=== PATIENT | female | born 1985 ===

== ENCOUNTER 2017-12-27 23:05 | Emergency (ER) | payer MEDICAID ==
[2017-12-27 23:18] VITALS: TEMP 98.3; O2SAT 100
[2017-12-27] MEDS ORDERED: Sodium Chloride 0.9% 1,000 ML IV STA (23:39)
--- NOTE | 2017-12-28 00:10 | ED PDOC ---
HPI: Abdomen Time Seen by Provider: 12/27/17 23:25 Chief Complaint (Nursing): Chest Pain Chief Complaint (Provider): Epigastric abdominal pain History Per: Patient History/Exam Limitations: no limitations Onset/Duration Of Symptoms: Hrs Additional Complaint(s): 32yo female, EGA of 8 weeks, presents to ED with complaints of epigastric abdominal pain for the apst 2 hours. Patient states she has been nauseous as well, which she attributed to her . She states tonight, she ate a coconut milk rice dish and had extreme epigastric pain with associated vomiting (non-bloody, non-bilious). She states the pain is sharp and non-radiating. She denies any fever, diarrhea, vaginal bleeding, or urinary symptoms. She has no other medical complaints. Abnormal Vaginal Bleeding: No : 1 Para: 0 Past Medical History Reviewed: Historical Data, Nursing Documentation, Vital Signs Vital Signs: Last Vital Signs Temp 98.3 F 12/27/17 23:16 Pulse 83 12/28/17 02:47 Resp 18 12/28/17 02:47 BP 115/75 12/28/17 02:47 Pulse Ox 100 12/28/17 02:47 - Medical History PMH: No Chronic Diseases - Surgical History Surgical History: No Surg Hx - Family History Family History: States: No Known Family Hx - Social History Current smoker - smoking cessation education provided: No Ex-Smoker (has not smoked in the last 12 months): No Alcohol: None Drugs: Denies - Home Medications Home Medications: Ambulatory Orders Medication Instructions Recorded Famotidine [Pepcid] 20 mg PO Q12 #28 tab 12/28/17 - Allergies Allergies/Adverse Reactions: Allergies Allergy/AdvReac Type Severity Reaction Status Date / Time No Known Allergies Allergy Verified 12/27/17 23:16 Review of Systems ROS Statement: Except As Marked, All Systems Reviewed And Found Negative Constitutional: Negative for: Fever, Chills Cardiovascular: Negative for: Chest Pain Gastrointestinal: Positive for: Vomiting, Abdominal Pain. Negative for: Nausea , Diarrhea Genitourinary Female: Negative for: Dysuria, Vaginal Bleeding Physical Exam - Reviewed Nursing Documentation Reviewed: Yes Vital Signs Reviewed: Yes - Physical Exam Appears: Positive for: Non-toxic, No Acute Distress Head Exam: Positive for: ATRAUMATIC, NORMAL INSPECTION, NORMOCEPHALIC Skin: Positive for: Normal Color Eye Exam: Positive for: Normal appearance Neck: Positive for: Supple Cardiovascular/Chest: Positive for: Regular Rate, Rhythm Respiratory: Positive for: Normal Breath Sounds. Negative for: Respiratory Distress Gastrointestinal/Abdominal: Positive for: Soft, Tenderness (epigastric) Back: Positive for: Normal Inspection Extremity: Positive for: Normal ROM. Negative for: Pedal Edema, Deformity, Swelling Neurologic/Psych: Positive for: Alert, Oriented. Negative for: Motor/Sensory Deficits - Laboratory Results Result Diagrams: 12/28/17 00:10 12/28/17 00:10 - ECG O2 Sat by Pulse Oximetry: 100 (RA) Pulse Ox Interpretation: Normal Medical Decision Making Medical Decision Making: Impression: 32yo female with epigastric pain in setting of Plan: -- Labs -- US gallbladder -- US OB 1st trimester Time: 219 US Right Upper Quadrant FINDINGS: Liver: Normal echogenicity. No mass. No intrahepatic bile duct dilatation. Gallbladder: No gallstones. No wall thickening. No pericholecystic fluid. No sonographic Bolanos's sign. Common bile duct: No dilatation. No stones. Pancreas: Unremarkable as visualized. Right kidney: Normal echogenicity. No hydronephrosis. IMPRESSION: 1. No acute findings. US OB 1st Trimester FINDINGS: Gestation: Single live intrauterine gestation. heart rate of 170 beats per minute. Fitzhugh-rump length of 1.6 cm, correlating with gestational age of 8 weeks 0 days. Uterus/cervix: No subchorionic hemorrhage. No cervical dilatation or effacement. Ovaries: Normal ovaries. No adnexal masses. Free fluid: No significant free fluid. IMPRESSION: 1. Single live intrauterine gestation. Time: 241 Labs reviewed and are within normal limits. Patient informed of US findings. Upon re-evaluation, patient reports feeling much better. Stable for discharge home, instructed to follow up with PCP as well as OBGYN in 2-3 days. Diagnosis: Gastritis Scribe Attestation: Documented by Alva Recio acting as a scribe for Moise Torres MD. Provider Attestation: All medical record entries made by the Scribe were at my direction and personally dictated by me. I have reviewed the chart and agree that the record accurately reflects my personal performance of the history, physical exam, medical decision making, and the department course for this patient. I have also personally directed, reviewed, and agree with the discharge instructions and disposition. Disposition - Clinical Impression Clinical Impression: Gastritis - Disposition Disposition: Routine/Home Disposition Time: 02:30 Condition: STABLE Prescriptions: Famotidine [Pepcid] 20 mg PO Q12 #28 tab Instructions: Gastritis Forms: [facility] (Amharic)
[2017-12-28 00:16] VITALS: RESP 18
[2017-12-28 00:16] LABS: EOS # 0.1 K/uL (0.0-0.7); NRBC % 0.1 % (0.0-0.0)
[2017-12-28 00:33] LABS: SQUAMOUS EPITHIAL 2 /hpf (0-5); URINE BACTERIA RARE (<OCC); URINE BILIRUBIN NEGATIVE (NEGATIVE); URINE BLOOD NEGATIVE (NEGATIVE); URINE CLARITY SLIGHTY-CLOUDY (Clear); URINE COLOR YELLOW (YELLOW); URINE GLUCOSE (UA) NEG (Normal); URINE LEUKOCYTE ESTERASE TRACE Leu/uL (Negative); URINE PROTEIN NEGATIVE (NEGATIVE); URINE UROBILINOGEN 0.2-1.0 mg/dL (0.2-1.0)
[2017-12-28 00:49] LABS: ALB/GLOB RATIO 1.2 (1.0-2.1); ALBUMIN 4.3 g/dL (3.5-5.0); ALT/SGPT 29 U/L (9-52); AST/SGOT 24 U/L (14-36); BLOOD UREA NITROGEN 8 mg/dl (7-17); CALCIUM 9.7 mg/dL (8.4-10.2); GFR AFRICAN-AMERICAN > 60; GFR NON-AFRICAN AMERICAN > 60; LIPASE 45 U/L (23-300)
[2017-12-28 01:25] LABS: BASO % 0.3 % (0.0-2.0); EOS % 1.1 % (0.0-4.0); LYMPH # 2.8 K/uL (1.0-4.3); MEAN CORPUSCULAR HEMOGLOBIN 33.5 pg (27.0-31.0); MEAN CORPUSCULAR HGB CONC 36.5 g/dL (33.0-37.0); MEAN PLATELET VOLUME 8.8 fl (7.2-11.7); MONO # 1.1 K/uL (0.0-0.8); MONO % 9.1 % (0.0-10.0); NEUT # 7.7 K/uL (1.8-7.0); NEUT % 65.5 % (50.0-75.0); RBC 3.88 Mil/uL (3.80-5.20); RED CELL DISTRIBUTION WIDTH 12.6 % (11.5-14.5); WHITE BLOOD COUNT 11.7 K/uL (4.8-10.8)
--- NOTE | 2017-12-28 01:52 | US ---
EXAM: US Abdomen Limited, Right Upper Quadrant CLINICAL HISTORY: 32 years old, female; Pain; Abdominal pain; Epigastric; ; Additional info: Epigastric pain TECHNIQUE: Real-time ultrasound of the right upper quadrant with image documentation. COMPARISON: No relevant prior studies available. FINDINGS: Liver: Normal echogenicity. No mass. No intrahepatic bile duct dilatation. Gallbladder: No gallstones. No wall thickening. No pericholecystic fluid. No sonographic Bolanos's sign. Common bile duct: No dilatation. No stones. Pancreas: Unremarkable as visualized. Right kidney: Normal echogenicity. No hydronephrosis. IMPRESSION: 1.No acute findings.
--- NOTE | 2017-12-28 01:54 | US ---
EXAM: US First Trimester, Transabdominal CLINICAL HISTORY: 32 years old, female; Pain; Other: Abd pain; Gestational age or lmp: 10/29/17; TECHNIQUE: Real-time transabdominal obstetrical ultrasound of the maternal pelvis and a first trimester with image documentation. COMPARISON: No relevant prior studies available. FINDINGS: Gestation: Single live intrauterine gestation. heart rate of 170 beats per minute. Belmond-rump length of 1.6 cm, correlating with gestational age of 8 weeks 0 days. Uterus/cervix: No subchorionic hemorrhage. No cervical dilatation or effacement. Ovaries: Normal ovaries. No adnexal masses. Free fluid: No significant free fluid. IMPRESSION: 1. Single live intrauterine gestation.
[2017-12-28 02:41] VITALS: BP 115/75; PULSE 83
== END 2017-12-28 02:53 | disposition home or self-care (01) ==
LOC: H.ER 23:05
DX: K29.70 Gastritis, unspecified, without bleeding (principal); O99.611 Diseases of the digestive system complicating pregnancy, first trimester; Z3A.08 8 weeks gestation of pregnancy
CPT/HCPCS: 76705; 76815; 80053; 81003; 83690; 85025; 96360; 99284; J7030

== ENCOUNTER 2018-02-19 13:32 | Emergency (ER) | payer MEDICAID ==
--- NOTE | 2018-02-19 14:36 | ED PDOC ---
HPI: Female Pain Time Seen by Provider: 02/19/18 14:33 Chief Complaint (Nursing): Female Genitourinary Chief Complaint (Provider): LLQ PAIN History Per: Patient (33 Y/O FEMALE 16 WEEK GESTATION HERE WITH LLQ PAIN SHARP X 2 EPISODES SINCE YESTERDAY. DENIES ANY DYSURIA/HEMATURIA. IS FOLLOWED UP WITH [facility]. DENIES ANY VAGINAL BLEEDING.) Past Medical History Reviewed: Historical Data, Nursing Documentation, Vital Signs Vital Signs: Last Vital Signs Temp 98.1 F 02/19/18 13:44 Pulse 85 02/19/18 13:44 Resp 16 02/19/18 13:44 BP 122/79 02/19/18 13:44 Pulse Ox 100 02/19/18 13:44 - Family History Family History: States: No Known Family Hx - Home Medications Home Medications: Ambulatory Orders Medication Instructions Recorded Famotidine [Pepcid] 20 mg PO Q12 #28 tab 12/28/17 - Allergies Allergies/Adverse Reactions: Allergies Allergy/AdvReac Type Severity Reaction Status Date / Time No Known Allergies Allergy Verified 12/27/17 23:16 Review of Systems ROS Statement: Except As Marked, All Systems Reviewed And Found Negative Physical Exam - Reviewed Nursing Documentation Reviewed: Yes Vital Signs Reviewed: Yes - Physical Exam Appears: Positive for: Well, Non-toxic, No Acute Distress Head Exam: Positive for: ATRAUMATIC, NORMAL INSPECTION, NORMOCEPHALIC Skin: Positive for: Normal Color, Warm, DRY Eye Exam: Positive for: EOMI, Normal appearance, PERRL ENT: Positive for: Normal ENT Inspection Neck: Positive for: Normal, Painless ROM Cardiovascular/Chest: Positive for: Regular Rate, Rhythm Respiratory: Positive for: CNT, Normal Breath Sounds Gastrointestinal/Abdominal: Positive for: Normal Exam, Soft, Tenderness (LEFT LOWER QUADRANT MILD TENDERNESS) Back: Positive for: Normal Inspection Extremity: Positive for: Normal ROM Neurologic/Psych: Positive for: Alert, Oriented - Laboratory Results Result Diagrams: 02/19/18 17:00 02/19/18 17:40 - ECG O2 Sat by Pulse Oximetry: 100 - Progress ED Course And Treament: IMPRESSION: Single live intrauterine fetus in breech presentation with mean gestational age of 16 weeks and 2 days. The estimated date of delivery by ultrasound is 2017. The ultrasound dates correspond with the clinical dates. Please note this is a limited OB ultrasound performed on an emergent basis. Dedicated follow-up anatomic survey is recommended. Disposition - Clinical Impression Clinical Impression: Abdominal pain affecting - Patient ED Disposition Is Patient to be Admitted: No - Disposition Disposition: Routine/Home Disposition Time: 18:52 Condition: FAIR Instructions: Threatened Miscarriage (DC), Breech Forms: [facility] ED School/Work Excuse
--- NOTE | 2018-02-19 17:16 | US ---
PROCEDURE: OB Pelvic Ultrasound HISTORY: Left lower quadrant pain LMP: 10/29/2017 COMPARISON: None available. FINDINGS: UTERUS: Gestational sac: Single live intrauterine fetus in breech presentation. Heart rate: 148 bpm. BPD: 3.35 cm corresponding to 16 weeks and 3 days of gestational age. HC: 12.49 cm corresponding to 16 weeks and 2 days of gestational age. AC: 10.08 cm corresponding to 16 weeks and 1 day of gestational age. FL: 2.05 cm corresponding to 16 weeks and 1 day of gestational age. age (Ultrasound estimated): 16 weeks and 2 days Ina-gestational hemorrhage: None. Date of delivery (Ultrasound estimated) : 08/04/2018 Placenta is anterior. CERVIX: Measures 4.4 cm. Long and closed. No cervical abnormality seen. RIGHT OVARY: Not visualized. LEFT OVARY: Not visualized. FREE FLUID: None. OTHER FINDINGS: None. IMPRESSION: Single live intrauterine fetus in breech presentation with mean gestational age of 16 weeks and 2 days. The estimated date of delivery by ultrasound is 08/04/2018. The ultrasound dates correspond with the clinical dates. Please note this is a limited OB ultrasound performed on an emergent basis. Dedicated follow-up anatomic survey is recommended.
[2018-02-19 17:22] LABS: BASO % 0.3 % (0.0-2.0); EOS # 0.1 K/uL (0.0-0.7); EOS % 0.7 % (0.0-4.0); HEMOGLOBIN 11.9 g/dL (12.0-16.0); LYMPH % 15.8 % (20.0-40.0); MEAN CELL VOLUME 96.7 fl (81.0-99.0); MEAN CORPUSCULAR HEMOGLOBIN 33.6 pg (27.0-31.0); MEAN CORPUSCULAR HGB CONC 34.7 g/dL (33.0-37.0); MEAN PLATELET VOLUME 8.8 fl (7.2-11.7); MONO % 7.6 % (0.0-10.0); NEUT # 9.5 K/uL (1.8-7.0); NEUT % 75.6 % (50.0-75.0); RBC 3.54 Mil/uL (3.80-5.20); RED CELL DISTRIBUTION WIDTH 13.9 % (11.5-14.5); WHITE BLOOD COUNT 12.6 K/uL (4.8-10.8)
[2018-02-19 17:36] LABS: SQUAMOUS EPITHIAL < 1 /hpf (0-5); URINE BACTERIA OCC (<OCC); URINE BILIRUBIN NEGATIVE (NEGATIVE); URINE BLOOD NEGATIVE (NEGATIVE); URINE CLARITY CLEAR (Clear); URINE COLOR COLORLESS (YELLOW); URINE GLUCOSE (UA) NEG (Normal); URINE LEUKOCYTE ESTERASE TRACE Leu/uL (Negative); URINE PROTEIN NEGATIVE (NEGATIVE); URINE UROBILINOGEN 0.2-1.0 mg/dL (0.2-1.0)
[2018-02-19 17:43] LABS: ALB/GLOB RATIO 1.1 (1.0-2.1); ALBUMIN 3.9 g/dL (3.5-5.0); ALT/SGPT 14 U/L (9-52); AST/SGOT 44 U/L (14-36); BLOOD UREA NITROGEN 9 mg/dl (7-17); CALCIUM 9.7 mg/dL (8.4-10.2); GFR AFRICAN-AMERICAN > 60; GFR NON-AFRICAN AMERICAN > 60
[2018-02-19 19:09] VITALS: BP 128/76; PULSE 78; RESP 19; TEMP 97; O2SAT 98
== END 2018-02-19 19:10 | disposition home or self-care (01) ==
LOC: H.ER 13:32
DX: O26.892 Other specified pregnancy related conditions, second trimester (principal); O32.1XX0 Maternal care for breech presentation, not applicable or unspecified; Z3A.16 16 weeks gestation of pregnancy

== ENCOUNTER 2018-07-25 12:17 | Emergency (ER) | payer MEDICAID, OTHER ==
[2018-07-25 12:29] VITALS: BP 130/73; PULSE 80; RESP 18; TEMP 98.1; O2SAT 100
--- NOTE | 2018-07-25 12:46 | ED PDOC ---
HPI: Female Pain Time Seen by Provider: 07/25/18 12:30 Chief Complaint (Nursing): Female Genitourinary History Per: Patient Onset/Duration Of Symptoms: Days (2) Current Symptoms Are (Timing): Still Present Severity: Mild Pain Scale Rating Of: 2 Quality Of Discomfort: Cramping Associated Symptoms: denies: Fever Alleviating Factors: None Additional Complaint(s): Vaginal bleeding assoc with mild lower abd cramping x 2 days. Pt approx 5 weeks preg. Past Medical History Vital Signs: Last Vital Signs Temp 98.1 F 07/25/18 12:27 Pulse 80 07/25/18 12:27 Resp 18 07/25/18 12:27 BP 130/73 07/25/18 12:27 Pulse Ox 100 07/25/18 12:27 - Medical History PMH: No Chronic Diseases - Family History Family History: States: Unknown Family Hx - Home Medications Home Medications: Ambulatory Orders Medication Instructions Recorded Famotidine [Pepcid] 20 mg PO Q12 #28 tab 12/28/17 - Allergies Allergies/Adverse Reactions: Allergies Allergy/AdvReac Type Severity Reaction Status Date / Time No Known Allergies Allergy Verified 07/25/18 12:27 Review of Systems Constitutional: Negative for: Fever Gastrointestinal: Positive for: Abdominal Pain Genitourinary Female: Negative for: Vaginal Bleeding Physical Exam - Physical Exam Appears: Positive for: Non-toxic, No Acute Distress Skin: Positive for: Normal Color, Warm, DRY Gastrointestinal/Abdominal: Positive for: Bowel Sounds, Soft. Negative for: Tenderness Pelvic Exam: Positive for: External Exam Normal, Blood (small amount of blood in vault. Cervix closed). Negative for: Mass, Tender Adnexa, Tender Uterus - Laboratory Results Result Diagrams: 07/25/18 12:55 07/25/18 12:55 - ECG O2 Sat by Pulse Oximetry: 100 Medical Decision Making Medical Decision Making: Discussed with Dr. Jacobs. Beta HCG 35 and no intrauterine preg with right adnexal structure will need repeat Beta HCG in 48 hrs. Unlikely that structure will rupture with 36 beta HCG.. Pt advised to return to ED immediately if increased pain or increased bleeding. Disposition - Clinical Impression Clinical Impression: Threatened miscarriage - Patient ED Disposition Is Patient to be Admitted: No Counseled Patient/Family Regarding: Studies Performed, Diagnosis, Need For Followup - Disposition [facility] Disposition: Routine/Home Disposition Time: 14:28 Condition: FAIR Additional Instructions: Return to ED in 48 hrs for repeat Beta HCG Instructions: Threatened Miscarriage Forms: [facility] (Swedish)
[2018-07-25 13:11] LABS: BASO # 0.1 K/uL (0.0-0.2); BASO % 0.5 % (0.0-2.0); EOS # 0.1 K/uL (0.0-0.7); EOS % 0.7 % (0.0-4.0); HEMOGLOBIN 13.8 g/dL (12.0-16.0); LYMPH # 2.3 K/uL (1.0-4.3); LYMPH % 19.9 % (20.0-40.0); MEAN CELL VOLUME 95.5 fl (81.0-99.0); MEAN CORPUSCULAR HEMOGLOBIN 32.9 pg (27.0-31.0); MEAN CORPUSCULAR HGB CONC 34.5 g/dL (33.0-37.0); MEAN PLATELET VOLUME 8.2 fl (7.2-11.7); MONO # 0.9 K/uL (0.0-0.8); MONO % 7.7 % (0.0-10.0); NEUT # 8.3 K/uL (1.8-7.0); NEUT % 71.2 % (50.0-75.0); NRBC % 0.1 % (0.0-0.0); RBC 4.19 Mil/uL (3.80-5.20); RED CELL DISTRIBUTION WIDTH 12.8 % (11.5-14.5); WHITE BLOOD COUNT 11.7 K/uL (4.8-10.8)
[2018-07-25 13:35] LABS: ALB/GLOB RATIO 1.2 (1.0-2.1); ALBUMIN 4.7 g/dL (3.5-5.0); ALT/SGPT 21 U/L (9-52); AST/SGOT 23 U/L (14-36); BLOOD UREA NITROGEN 10 mg/dl (7-17); CALCIUM 10.2 mg/dL (8.4-10.2); GFR NON-AFRICAN AMERICAN > 60
--- NOTE | 2018-07-25 14:19 | US ---
Date of service: 07/25/2018 HISTORY: r/o ectopic. Beta HCG laboratory value is not available were provided at the time of this dictation. COMPARISON: None available. TECHNIQUE: Real-time transvaginal ultrasound examination of the pelvis was performed for and pain. FINDINGS: UTERUS: Measures 6.6 x 4.1 x 5.3 cm. Normal in size and appearance. No fibroid or other mass lesion seen. ENDOMETRIUM: Measures 15 mm in diameter. No intrauterine gestational sac is identified. CERVIX: No cervical abnormality identified. RIGHT OVARY: Measures 2.4 x 1.0 x 1.4 cm. No solid mass. Normal flow. There is evidence of a 1.0 x 1.0 x 1.1 centimeter mildly complex mass in the right adnexa and cornual region and separate from the right ovary. No significant increased flow was noted. Ectopic cannot be excluded and correlation with the patient's beta HCG laboratory value was suggested. LEFT OVARY: Measures 2.3 x 1.3 x 2.5 cm. No solid mass. Normal flow. FREE FLUID: No significant free fluid noted. OTHER FINDINGS: None. IMPRESSION: No evidence of intrauterine gestation. Small mildly complex 1 centimeter structure in the right adnexa separate from the right ovary. Early ectopic cannot be excluded. Dr. Peters was notified.
== END 2018-07-25 14:40 | disposition home or self-care (01) ==
LOC: H.ER 12:17
DX: O20.0 Threatened abortion (principal)

== ENCOUNTER 2018-07-27 11:08 | Emergency (ER) | payer OTHER ==
[2018-07-27 11:32] VITALS: RESP 16; BMI 22.4
[2018-07-27 13:14] LABS: BASO # 0.1 K/uL (0.0-0.2); BASO % 0.7 % (0.0-2.0); EOS # 0.1 K/uL (0.0-0.7); EOS % 1.3 % (0.0-4.0); HEMOGLOBIN 13.9 g/dL (12.0-16.0); LYMPH # 2.3 K/uL (1.0-4.3); LYMPH % 32.1 % (20.0-40.0); MEAN CORPUSCULAR HEMOGLOBIN 32.4 pg (27.0-31.0); MEAN CORPUSCULAR HGB CONC 34.5 g/dL (33.0-37.0); MEAN PLATELET VOLUME 8.1 fl (7.2-11.7); MONO # 0.6 K/uL (0.0-0.8); MONO % 7.8 % (0.0-10.0); NEUT # 4.2 K/uL (1.8-7.0); NEUT % 58.1 % (50.0-75.0); NRBC % 0.1 % (0.0-0.0); RBC 4.3 Mil/uL (3.80-5.20); WHITE BLOOD COUNT 7.2 K/uL (4.8-10.8)
[2018-07-27 13:35] LABS: ALB/GLOB RATIO 1.2 (1.0-2.1); ALBUMIN 4.6 g/dL (3.5-5.0); ALT/SGPT 22 U/L (9-52); AST/SGOT 21 U/L (14-36); BLOOD UREA NITROGEN 12 mg/dl (7-17); CALCIUM 10.1 mg/dL (8.4-10.2); GFR NON-AFRICAN AMERICAN > 60
[2018-07-27 13:41] LABS: INR 1.1; PROTHROMBIN TIME 12.4 Seconds (9.8-13.1)
[2018-07-27 13:44] LABS: PARTIAL THROMBOPLASTIN TIME 33.7 Seconds (25.6-37.1)
--- NOTE | 2018-07-27 15:01 | ED PDOC ---
HPI: General Adult Time Seen by Provider: 07/27/18 12:18 Chief Complaint (Nursing): Abnormal Labs Chief Complaint (Provider): Vaginal bleeding History Per: Patient History/Exam Limitations: no limitations Onset/Duration Of Symptoms: Days Have you had recent travel within the past 21 days to any of the following countries: [place], [place], [place] or [place]?: No Current Symptoms Are (Timing): Still Present Additional Complaint(s): 33yo female, , comes to ER for re-evaluation as per her discharge instructions from 2 days ago. Patient was evaluated in this ER 2 days ago due to persistent vaginal bleeding in setting of . Patient had an ultrasound and was noted to have a complex structure near her right ovary; patient reports the pain was present in her left side at that time and is persistent. Otherwise, no chest pain, shortness of breath, vomiting or diarrhea. No additional complaints. Pt states her first appointment with OB is tomorrow. 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 Past Medical History Reviewed: Historical Data, Nursing Documentation, Vital Signs Vital Signs: Last Vital Signs Temp 98.5 F 07/27/18 11:31 Pulse 76 07/27/18 11:31 Resp 16 07/27/18 11:31 BP 117/69 07/27/18 11:31 Pulse Ox 100 07/27/18 11:31 - Medical History PMH: No Chronic Diseases - Surgical History Surgical History: No Surg Hx - Family History Family History: States: Unknown Family Hx - Home Medications Home Medications: Ambulatory Orders Medication Instructions Recorded Famotidine [Pepcid] 20 mg PO Q12 #28 tab 12/28/17 - Allergies Allergies/Adverse Reactions: Allergies Allergy/AdvReac Type Severity Reaction Status Date / Time No Known Allergies Allergy Verified 07/25/18 12:27 Review of Systems ROS Statement: Except As Marked, All Systems Reviewed And Found Negative Cardiovascular: Negative for: Chest Pain Respiratory: Negative for: Shortness of Breath Gastrointestinal: Negative for: Nausea, Vomiting, Diarrhea Genitourinary Female: Positive for: Vaginal Bleeding, Pelvic Pain Physical Exam - Reviewed Nursing Documentation Reviewed: Yes Vital Signs Reviewed: Yes - Physical Exam Appears: Positive for: Non-toxic, No Acute Distress Head Exam: Positive for: NORMOCEPHALIC Skin: Positive for: Normal Color Eye Exam: Positive for: Normal appearance ENT: Positive for: Normal ENT Inspection Neck: Positive for: Supple Cardiovascular/Chest: Positive for: Regular Rate, Rhythm. Negative for: Bradycardia, Tachycardia Respiratory: Positive for: Normal Breath Sounds Gastrointestinal/Abdominal: Positive for: Normal Exam, Soft. Negative for: Tenderness, Guarding, Rebound Extremity: Positive for: Normal ROM Neurologic/Psych: Positive for: Alert, Oriented - Laboratory Results Result Diagrams: 07/27/18 13:00 07/27/18 13:00 - ECG O2 Sat by Pulse Oximetry: 100 (RA) Pulse Ox Interpretation: Normal Medical Decision Making Medical Decision Making: Impression: 33yo female w/ vaginal bleeding Plan: -- Labs -- US OB Labs reviewed, patient's Beta-HCG on 07/25 was 36.15 and today is 9.[address] Valdez. agrees with chemical . 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 Pt given copies of US and labs for f/u. Scribe Attestation: Documented by Alva Recio, acting as a scribe for JESSICA Salmon. Provider Scribe Attestation: All medical record entries made by the Scribe were at my direction and p ersonally dictated by me. I have reviewed the chart and agree that the record accurately reflects my personal performance of the history, physical exam, medical decision making, and the department course for this patient. I have also personally directed, reviewed, and agree with the discharge instructions and disposition. Disposition - Clinical Impression Clinical Impression: Chemical - Disposition Referrals: Elizabeth Valdez MD [Staff Provider] - Disposition: Routine/Home Disposition Time: 16:14 Condition: GOOD Instructions: Miscarriage, Dealing With Miscarriage Forms: [facility] (Spanish)
--- NOTE | 2018-07-27 15:47 | US ---
Date of service: 07/27/2018 HISTORY: Vaginal bleeding in COMPARISON: 07/25/2018 TECHNIQUE: Transvaginal only. Real -time technique with 2D, duplex and color Doppler FINDINGS: UTERUS: Measures 4.4 x 4.5 x 7.5 cm. Normal in size and appearance. No fibroid or other mass lesion seen. ENDOMETRIUM: Measures 10.7 mm in diameter. No ultrasound findings to suggest gestational sac, fluid, debris, mass or polyp or other pathologic process within the endometrium. CERVIX: No cervical abnormality identified. RIGHT OVARY: Measures 1.5 x 2.7 x 3.6 cm. Stable mass likely hemorrhagic cyst 1 cm. Normal flow. Multiple subcentimeter follicles. LEFT OVARY: Measures 1.3 x 2.3 x 2.5 cm. No solid mass. Normal flow. FREE FLUID: No significant free fluid noted. OTHER FINDINGS: None. IMPRESSION: No visible intrauterine or ectopic products of conception. Additional benign and/or incidental findings described above. No significant interval change compared to the prior examination(s).
[2018-07-27 16:33] VITALS: BP 125/80; PULSE 75; TEMP 97.9; O2SAT 99
== END 2018-07-27 16:33 | disposition home or self-care (01) ==
LOC: H.ER 11:08
DX: O02.81 Inappropriate change in quantitative human chorionic gonadotropin (hCG) in early pregnancy (principal); Z3A.24 24 weeks gestation of pregnancy

== ENCOUNTER 2018-09-28 17:40 | Emergency (ER) | payer OTHER ==
[2018-09-28 17:40] VITALS: BMI 22.4
[2018-09-28 18:27] VITALS: RESP 18; O2SAT 100
--- NOTE | 2018-09-28 18:37 | ED PDOC ---
HPI: Headache Time Seen by Provider: 09/28/18 18:33 Chief Complaint (Nursing): Headache Chief Complaint (Provider): Headache History Per: Patient History/Exam Limitations: no limitations Onset/Duration Of Symptoms: Persistent, Worse Since (x5 days) Current Symptoms Are (Timing): Still Present Additional Complaint(s): 33 year old female with pmHx of migraines, presents to the ED with persistent frontal headache for 5 days associated with nausea and 1 episode of vomiting yesterday. She denies any fever, chills, visual changes, photophobia, numbness or weakness to extremities. Patient reports she has had migraines daily for years; was evaluated by a Neurologist in [facility] 4 years ago and had (-) CT head findings but has not followed up with a doctor since then. PCP: none provided Past Medical History Reviewed: Historical Data, Nursing Documentation, Vital Signs Vital Signs: Last Vital Signs Temp 98.1 F 09/28/18 18:24 Pulse 72 09/28/18 18:24 Resp 18 09/28/18 18:24 BP 116/78 09/28/18 18:24 Pulse Ox 100 09/28/18 18:24 - Medical History PMH: Migraine - Surgical History Surgical History: No Surg Hx - Family History Family History: States: Unknown Family Hx - Home Medications Home Medications: Ambulatory Orders Medication Instructions Recorded Famotidine [Pepcid] 20 mg PO Q12 #28 tab 12/28/17 Acetaminophen/Butalbital/Caf 1 tab PO Q6 PRN #10 tab 09/28/18 [Fioricet] Ondansetron ODT [Zofran ODT] 4 mg PO Q8 PRN #10 odt 09/28/18 - Allergies Allergies/Adverse Reactions: Allergies Allergy/AdvReac Type Severity Reaction Status Date / Time No Known Allergies Allergy Verified 07/25/18 12:27 Review of Systems ROS Statement: Except As Marked, All Systems Reviewed And Found Negative Constitutional: Negative for: Fever, Chills Eyes: Negative for: Vision Change (or photophobia) Gastrointestinal: Positive for: Nausea, Vomiting (x1) Neurological: Positive for: Headache (frontal). Negative for: Weakness, Numbness Physical Exam - Reviewed Nursing Documentation Reviewed: Yes Vital Signs Reviewed: Yes - Physical Exam Appears: Positive for: Well, Non-toxic, No Acute Distress Head Exam: Positive for: ATRAUMATIC, NORMAL INSPECTION, NORMOCEPHALIC Skin: Positive for: Normal Color Eye Exam: Positive for: Normal appearance, EOMI, PERRL ENT: Positive for: Normal ENT Inspection, TM Is/Are (clear bilaterally) Neck: Positive for: Normal, Painless ROM, Supple Cardiovascular/Chest: Positive for: Regular Rate, Rhythm, Chest Non Tender Respiratory: Positive for: Normal Breath Sounds. Negative for: Respiratory Distress Extremity: Positive for: Normal ROM (upper/lower) Neurologic/Psych: Positive for: Alert, water safety instructor II-XII (grossly intact), Oriented (x3), Gait (steady). Negative for: Motor/Sensory Deficits, Aphasia - Laboratory Results Urine POC: Negative - ECG O2 Sat by Pulse Oximetry: 100 (RA) Pulse Ox Interpretation: Normal Medical Decision Making Medical Decision Making: Time: 1834 Initial Plan: * Urine * Toradol 30mg IM * Zofran 4mg PO Time: 2012 --Upon provider re-evaluation, patient is medically stable, reports improvement in symptoms, and requires no further treatment in the ED at this time. Patient will be discharged home with Rx for Fioricet and Zofran. Patient was advised to follow up with PMD with Neuro referral. Counseling was provided and all questions were answered regarding diagnosis. There is agreement to discharge plan. Return if symptoms persist or worsen. Clinical Impression: Headache Scribe Attestation: Documented by Leni Desir, acting as a scribe for Chapis Ambriz PA-C. Provider Scribe Attestation: All medical record entries made by the Scribe were at my direction and personally dictated by me. I have reviewed the chart and agree that the record accurately reflects my personal performance of the history, physical exam, medical decision making, and the department course for this patient. I have also personally directed, reviewed, and agree with the discharge instructions and disposition. Disposition - Clinical Impression Clinical Impression: Headache - Patient ED Disposition Is Patient to be Admitted: No Counseled Patient/Family Regarding: Diagnosis, Need For Followup, Rx Given - Disposition Referrals: [facility] [Outside] [facility] [Outside] Disposition: Routine/Home Disposition Time: 20:13 Condition: IMPROVED Prescriptions: Acetaminophen/Butalbital/Caf [Fioricet] 1 tab PO Q6 PRN #10 tab PRN Reason: Headache Ondansetron ODT [Zofran ODT] 4 mg PO Q8 PRN #10 odt PRN Reason: Nausea/Vomiting Instructions: Migraine Headaches in Adults Forms: [facility] (Yakut)
[2018-09-28 20:22] VITALS: BP 106/78; PULSE 71; TEMP 98
== END 2018-09-28 20:21 | disposition home or self-care (01) ==
LOC: H.ER 17:40
DX: R51 Headache (principal)
CPT/HCPCS: 81025; 96372; 99285; J1885

== ENCOUNTER 2018-11-16 12:01 | Emergency (ER) | payer MEDICAID, OTHER ==
[2018-11-16 12:01] VITALS: BMI 22.4
[2018-11-16 12:08] VITALS: RESP 18; TEMP 98.5
[2018-11-16] MEDS ORDERED: Lidocaine 1% (10 ml) Inj INFIL STA (12:43)
[2018-11-16] MEDS ORDERED: Lidocaine Hydrochloride 1% 10 ML ONE (12:47)
--- NOTE | 2018-11-16 14:30 | ED PDOC ---
Upper Extremity Pain/Injury Time Seen by Provider: 11/16/18 12:33 Chief Complaint (Nursing): Finger,Hand,&Wrist Chief Complaint (Provider): Finger,Hand,&Wrist History Per: Patient History/Exam Limitations: no limitations Onset/Duration Of Symptoms: Mins Current Symptoms Are (Timing): Still Present Additional Complaint(s): 33 y/o female with no significant PMHx present to the ED for evaluation of a left thump injury s/p shattering of a glass coffee pot. Patient states she was cleaning a glass coffee pot this morning when the glass suddenly shattered thus cutting her left thumb. Patient reports of putting pressure to the thumb and came directly here for further evaluation. Patient denies taking any medications for pain relief. Patient notes of having some numbness and a mild foreign body sensation to the thumb. PMD: no provider Tetanus Vaccinations are up to date (last received four years ago) Past Medical History Reviewed: Historical Data, Nursing Documentation, Vital Signs Vital Signs: Last Vital Signs Temp 98.5 F 11/16/18 12:07 Pulse 95 H 11/16/18 12:07 Resp 18 11/16/18 12:07 BP 139/79 11/16/18 12:07 Pulse Ox 99 11/16/18 12:07 - Medical History PMH: Migraine - Surgical History Surgical History: No Surg Hx - Family History Family History: States: Unknown Family Hx - Immunization History Hx Tetanus Toxoid Vaccination: Yes (last received four years ago) - Home Medications Home Medications: Ambulatory Orders Medication Instructions Recorded Famotidine [Pepcid] 20 mg PO Q12 #28 tab 12/28/17 Acetaminophen/Butalbital/Caf 1 tab PO Q6 PRN #10 tab 09/28/18 [Fioricet] Ondansetron ODT [Zofran ODT] 4 mg PO Q8 PRN #10 odt 09/28/18 Ibuprofen [Motrin Tab] 600 mg PO Q6 PRN 7 Days tab 11/16/18 - Allergies Allergies/Adverse Reactions: Allergies Allergy/AdvReac Type Severity Reaction Status Date / Time No Known Allergies Allergy Verified 07/25/18 12:27 Review of Systems ROS Statement: Except As Marked, All Systems Reviewed And Found Negative Musculoskeletal: Positive for: Hand Pain (left thumb injury with a mild foreign body sensation. ) Neurological: Positive for: Numbness Physical Exam - Reviewed Nursing Documentation Reviewed: Yes Vital Signs Reviewed: Yes - Physical Exam Appears: Positive for: Uncomfortable Pulses-Radial (L): 2+ Pulses-Radial (R): 2+ Extremity: Positive for: Capillary Refill (3 seconds), Deformity (Irregular approximately 5-6 cm evulsion crossing over IP and is distal to the MCP on the left first digit ) - ECG O2 Sat by Pulse Oximetry: 99 (RA) Pulse Ox Interpretation: Normal Medical Decision Making Medical Decision Making: Time: 1302 Impression: Left Hand Injury Plan: -- Digital Nerve Block with Lidocaine Hydrochloride 1% 5 ml INFIL -- Hand Left Thumb XR Time: 1400 -- XR as read by me demonstrates no foreign body, no dislocation or fracture. Time: 1525 -- Laceration Repair. Refer to procedure note. Scribe Attestation: Documented by Kasi Bond, acting as a scribe Arnav Orourke PA-C. Provider Scribe Attestation: All medical record entries made by the Scribe were at my direction and person ally dictated by me. I have reviewed the chart and agree that the record accurately reflects my personal performance of the history, physical exam, medical decision making, and the department course for this patient. I have also personally directed, reviewed, and agree with the discharge instructions and disposition. Procedures - Laceration/Wound Repair Left Hand Wound Length (cm): 6 Wound's Depth, Shape: superficial Wound Explored: no foreign body removed Betadine Prep?: Yes Anesthesia: 1% Lidocaine Volume Anesthetic (ccs): 5 Wound Repaired With: Sutures Suture Size/Type: 5:0 (2 sutures), 4:0 (7 sutures) Number of Sutures: 9 (nonabsorbable) Wound Complexity: Simple Disposition - Clinical Impression Clinical Impression: Laceration of left thumb - Patient ED Disposition Is Patient to be Admitted: No Counseled Patient/Family Regarding: Studies Performed, Diagnosis, Need For Followup - Disposition Referrals: Dahlia Gooden MD [Medical Doctor] - Disposition: Routine/Home Disposition Time: 15:51 Condition: STABLE Additional Instructions: Use Tylenol or Ibuprofen for pain. You have [address] that will need to be removed in 10 - 12 days either by your primary care doctor or return to ER. Keep wound clean and dry for the next 24hrs and then remove dressing and wash gently with soap and water, then leave open to the air thereafter. Return to ER if you develop pus drainage, fever or chills. Prescriptions: Ibuprofen [Motrin Tab] 600 mg PO Q6 PRN 7 Days tab PRN Reason: Pain, Moderate (4-7) Instructions: Wound Care (DC), Laceration Repair With Stitches (DC) Forms: [employer] (Azeri), [facility] ED School/Work Excuse Print Language: UPPER SORBIAN
[2018-11-16] MEDS ORDERED: Bacitracin 500 Units/gm Oint Foilpak UD ONE (15:27)
[2018-11-16 15:48] VITALS: BP 110/60; PULSE 60
--- NOTE | 2018-11-16 16:38 | RAD ---
Date of service: 11/16/2018 PROCEDURE: Left Thumb radiographs. HISTORY: s/p laceration from shattered glass COMPARISON: None. TECHNIQUE: AP radiograph of the left hand, as well as spot oblique and lateral images of thumb were obtained. FINDINGS: LEFT THUMB: Normal left thumb, without fracture or focal lesion. Remainder of the left hand (as seen on the AP view) grossly unremarkable. JOINTS: Normal. SOFT TISSUES: Normal. OTHER FINDINGS: None. IMPRESSION: Normal left thumb radiographs.No visualized radiopaque foreign body.
[2018-11-17 01:22] VITALS: O2SAT 99
== END 2018-11-16 16:01 | disposition home or self-care (01) ==
LOC: H.ER 12:01
DX: S61.012A Laceration without foreign body of left thumb without damage to nail, initial encounter (principal); W25.XXXA Contact with sharp glass, initial encounter; Y92.89 Other specified places as the place of occurrence of the external cause

== ENCOUNTER 2018-11-26 15:40 | Emergency (ER) | payer SELFPAY ==
[2018-11-26 15:40] VITALS: BMI 22.4
[2018-11-26 15:57] VITALS: BP 109/67; PULSE 80; RESP 18; TEMP 97.8; O2SAT 100
--- NOTE | 2018-11-26 16:47 | ED PDOC ---
HPI: Wound Care - HPI Time Seen by Provider: 11/26/18 15:58 Chief Complaint (Nursing): Suture/Staple Removal Chief Complaint (Provider): Suture/Staple Removal History Per: Patient Exam Limitations: no limitations Onset/Duration Of Symptoms: Days (x10) Current Symptoms Are (Timing): Still Present Additional Complaint(s): 33 year old female presents to the ED for suture removal. Patient was seen on 11/16 for nine sutures placed to 1st left digit after a glass coffee pot exploded in her hand and was instructed on return parameters. Otherwise denies fever, chills, redness, and drainage. Currently, she reports only minimal pain to the area. PMD: none provided Past Medical History Reviewed: Historical Data, Nursing Documentation, Vital Signs Vital Signs: Last Vital Signs Temp 97.8 F 11/26/18 15:56 Pulse 80 11/26/18 15:56 Resp 18 11/26/18 15:56 BP 109/67 11/26/18 15:56 Pulse Ox 100 11/26/18 15:56 - Medical History PMH: Migraine - Surgical History Surgical History: No Surg Hx - Family History Family History: States: Unknown Family Hx - Immunization History Hx Tetanus Toxoid Vaccination: Yes (last received four years ago) - Home Medications Home Medications: Ambulatory Orders Medication Instructions Recorded Famotidine [Pepcid] 20 mg PO Q12 #28 tab 12/28/17 Acetaminophen/Butalbital/Caf 1 tab PO Q6 PRN #10 tab 09/28/18 [Fioricet] Ondansetron ODT [Zofran ODT] 4 mg PO Q8 PRN #10 odt 09/28/18 Ibuprofen [Motrin Tab] 600 mg PO Q6 PRN 7 Days tab 11/16/18 - Allergies Allergies/Adverse Reactions: Allergies Allergy/AdvReac Type Severity Reaction Status Date / Time No Known Allergies Allergy Verified 11/26/18 15:56 Review of Systems ROS Statement: Except As Marked, All Systems Reviewed And Found Negative Constitutional: Negative for: Fever, Chills Skin: Positive for: Other (nine sutures [address] place to 1st left digit without redness and drainage) Physical Exam - Reviewed Nursing Documentation Reviewed: Yes Vital Signs Reviewed: Yes - Physical Exam Appears: Positive for: No Acute Distress Pulses-Radial (L): 2+ Pulses-Radial (R): 2+ Extremity: Positive for: Capillary Refill (less than 2 seconds), Other (left 1st digit: [address] to a well healing scar without erythema, drainage, and edema) Neurological/Psych: Positive for: Awake, Alert, Oriented (x3). Negative for: Motor/Sensory Deficits (sensitive to light touch) - ECG O2 Sat by Pulse Oximetry: 100 (RA) Pulse Ox Interpretation: Normal Medical Decision Making Medical Decision Making: Time: 1630 Initial Impression: suture removal Initial Plan: --9 sutures removed. No wound dehiscence appreciated. Stable for discharge home. Scribe Attestation: Documented by Indy Cortez, acting as a scribe for Nia Orourke PA-C. Provider Scribe Attestation: All medical record entries made by the Scribe were at my direction and personally dictated by me. I have reviewed the chart and agree that the record accurately reflects my personal performance of the history, physical exam, medical decision making, and the department course for this patient. I have also personally directed, reviewed, and agree with the discharge instructions and disposition. Disposition - Clinical Impression Clinical Impression: Removal of suture - Patient ED Disposition Is Patient to be Admitted: No - Disposition Disposition: Routine/Home Disposition Time: 16:42 Condition: STABLE Additional Instructions: You can wash wound with soap and water and use Bacitracin or Neosporin to prevent infection. Return to ER or go to primary care if wound opens or begins to drain pus or fevers develop. Continue Tylenol or Ibuprofen for pain. Instructions: Stitches Removal Forms: [employer] (Khmer) Print Language: YORUBA
== END 2018-11-26 17:01 | disposition home or self-care (01) ==
LOC: H.ER 15:40
DX: Z48.02 Encounter for removal of sutures (principal)